=== PATIENT | male | born 1995 | race Caucasian/White ===

== ENCOUNTER 2021-03-12 10:07 | Emergency (ER) | payer BC, SELFPAY ==
[2021-03-12 10:32] VITALS: BP 130/95; PULSE 109; RESP 20; TEMP 37.1; O2SAT 99; BMI 34.9
--- NOTE | 2021-03-12 10:34 | HMH.EDUTC ---
[facility] [place] Impression: Corneal rust ring of right eye Disposition: Home, Self-Care Condition on Discharge: Good Additional Instructions: See Dr. Carolina in his office at noon today for rust ring removal. Dr. Raghu [place] [facility] [address] [place] [address] Referrals: Keon Hernandez MD [Primary Care Provider] - Time of Disposition: 10:42 Medical Decision Making - Awais Inquiry Pt receiving controlled substance: No Awais was queried for this patient: No Vital Signs: 03/12/21 10:32 03/12/21 10:43 03/12/21 10:46 Temperature 98.8 F 98.8 F Temperature Source Oral Oral Pulse Rate Pulse Rate [Left] 109 H 118 H Respiratory Rate 20 16 Blood Pressure 146/94 H Blood Pressure [Right Arm] 130/95 H 146/94 H Blood Pressure Mean 116 Blood Pressure Mean [Right Arm] 106 111 Blood Pressure Source [Right Arm] Automatic Cuff Automatic Cuff Blood Pressure Position [Right Arm] Sitting Sitting 02 Sat by Pulse Oximetry 99 99 Oxygen Delivery Method Room Air Room Air 03/12/21 11:28 Temperature 98.8 F Temperature Source Pulse Rate 118 H Pulse Rate [Left] Respiratory Rate 16 Blood Pressure 146/94 H Blood Pressure [Right Arm] Blood Pressure Mean Blood Pressure Mean [Right Arm] Blood Pressure Source [Right Arm] Blood Pressure Position [Right Arm] 02 Sat by Pulse Oximetry Oxygen Delivery Method Room Air Orders (Tests/Meds): ED MEDICATIONS Discontinued Medications Generic Name Dose Route Start Last Admin Trade Name Freq PRN Reason Stop Dose Admin Fluorescein Sodium 1 mg 03/12/21 11:29 03/12/21 11:31 Fluorescein Sodium 1mg Strip OP 03/12/21 11:30 1 mg ONCE ONE Administration Tetracaine HCl 0 ml 03/12/21 11:29 03/12/21 11:30 Tetracaine 0.5% Opth Joyce 15ml OP 03/12/21 11:30 1 ml ONCE ONE Administration Medical Decision Narrative: Patient reports that he was grinding metal last night when some metal shavings flew up and went under his glasses and feels like it went into his right eye and this morning he could see black spot on his eye. Reports eye has been irritated, watering and feeling like there is something still in his eye. Small amount of black particles noted in corner of eye and was wiped away reports eye sensitive to light and feels like metal is still in his eye Discussed with patient and recommended transfer to the ED for further evaluation and removal of FB if still in eye and patient agreed [facility] [place] - General Stated complaint: AC 03/11/21 Steel in eye Time Seen by Provider: 03/12/21 10:34 Mode of Arrival: Ambulatory Source of Information: Patient Limitations: No Limitations Description of Symptoms (Recalled from Triage Doc. by RN): Steel in eye HEENT Symptoms (Recalled from RN notes): Yes Resp Symptoms (Recalled from RN notes): No Skin Symptoms (Recalled from RN notes): No MS Symptoms (Recalled from RN notes): No Functional Status (Recalled from RN notes): wnl - History of Present Illness Provider Complaint: Patient states that he was grinding some metal last night when a spark of metal shaving went under his glasses in into his right eye States that he thought it was ok and laid down but his eye watered all night and was irritatied and this morning he could see a dark spot in his right eye and feels scratchy at times like there is some metal in there States that he has had this before and had to have it removed - Related Data Allergies Allergy/AdvReac Type Severity Reaction Status Date / Time No Known Allergies Allergy Verified 03/12/21 10:35 - Worker's Comp Is this a Worker's Comp case?: No [facility] History - Hepatitis A Screen Drug use history?: No High risk sexual behaviors?: No History of sexually transmitted infection?: No Currently employed?: No Childcare worker?: No Do you have indoor plumbing?: Yes Do you have electricity?: Yes Attestation statement:: This patient has been
[2021-03-12 10:43] VITALS: BP 146/94
--- NOTE | 2021-03-12 10:45 | HMH.EDGENADL ---
ED Disposition Clinical Impression: Corneal rust ring of right eye Disposition: Home, Self-Care Condition on Discharge: Good Additional Instructions: See Dr. Carolina in his office at noon today for rust ring removal. Dr. Raghu Carolina [facility] [address] [place] [address] Referrals: Keon Hernandez MD [Primary Care Provider] - - Critical Care Critical Care Time: No Attestation: On 03/12/21, the high probability of a clinically significant, sudden or life threatening deterioration of the following system(s) required my full and direct attention, intervention and personal management. The time I documented below is in addition to time spent performing reported procedures but includes the following listed in this critical care notation. Medical Decision Making - Awais Inquiry Pt receiving controlled substance: No Vital Signs: 03/12/21 10:32 03/12/21 10:46 Temperature 98.8 F 98.8 F Temperature Source Oral Oral Pulse Rate [Left] 109 H 118 H Respiratory Rate 20 16 Blood Pressure [Right Arm] 130/95 H 146/94 H Blood Pressure Mean [Right Arm] 106 111 Blood Pressure Source [Right Arm] Automatic Cuff Automatic Cuff Blood Pressure Position [Right Arm] Sitting Sitting 02 Sat by Pulse Oximetry 99 99 Oxygen Delivery Method Room Air Room Air - Physician Consults Physician Consulted: Ge Time: 11:07 Reason -: Opthalmology Eval/Care Comment/Response: He will see the patient in his office today at noon General Adult HPI - General Stated complaint: AC 03/11/21 Steel in eye Time Seen by Provider: 03/12/21 10:45 Mode of Arrival: Ambulatory Source of Information: Patient Limitations: No Limitations Description of Symptoms (Recalled from ER Triage Doc. by RN): Steel in eye - History of Present Illness HPI narrative: Sent from the urgent treatment center for possible foreign body right thigh. Yesterday the patient was grinding metal wearing safety glasses when a piece of metal went up under his safety glasses and got in his right eye. Eye irritation and watering since then. In the urgent treatment center a couple of small black foreign bodies removed from what sounds to be his medial canthus area. However, still complained of irritation, therefore sent for further evaluation. After arrival in the emergency department, he says his irritation and watering is markedly improved. He does not wear glasses or contact lenses. - Related Data Allergies Allergy/AdvReac Type Severity Reaction Status Date / Time No Known Allergies Allergy Verified 03/12/21 10:35 H History - Hepatitis A Screen Drug use history?: No High risk sexual behaviors?: No History of sexually transmitted infection?: No Currently employed?: No Childcare worker?: No Do you have indoor plumbing?: Yes Do you have electricity?: Yes Attestation statement:: This patient has been screened for Hepatitis A risk factors. I have reviewed the patient's past medical history: Yes - Social History Smoking Status: Never smoker Alcohol Intake: never Alcohol Intake Frequency:: holidays/special occasions only Substance Use Type: denies use Occupational Status: other Family Hx:: Non-contributory ROS Obtained: Yes Systems reviewed as appropriate & no additional complaints - Eyes Eyes: Reports irritation, Denies loss of vision Physical Exam - General General appearance: alert, in no apparent distress - Head Head exam: atraumatic, normocephalic - Eye Eye exam: Present: PERRL, EOMI - Expanded Eye Exam Eyelids: bilateral: normal inspection Pupils: Bilateral: regular, round Sclera/Conjunctival: bilateral: normal inspection Anterior chamber: right: normal inspection Both Eyes Image: 1 - Small rust spot Comment: Fluorescein staining performed with magnification. No uptake or abrasions seen. - Respiratory Respiratory exam: Abs
[2021-03-12 10:46] VITALS: BP 146/94; PULSE 118; RESP 16; TEMP 37.1; O2SAT 99; BMI 34.9
--- NOTE | 2021-03-12 10:47 | PC.NURSE ---
visual acutity R eye 20/15 L eye 20/15
--- NOTE | 2021-03-12 11:02 | PC.NURSE ---
DEN GALE spoke with Dr. Carolina at this time
[2021-03-12 11:28] VITALS: BP 146/94; PULSE 118; RESP 16; TEMP 37.1; O2SAT 99
== END 2021-03-12 11:28 | disposition home or self-care (01) ==
LOC: UTC 10:38 → ER 10:38
PROVIDERS: Emergency Provider Nurse Practitioner; PCP Internal Medicine Adolescent Medicine
DX: T15.01XA Foreign body in cornea, right eye, initial encounter (principal); W45.8XXA Other foreign body or object entering through skin, initial encounter; Y92.018 Other place in single-family (private) house as the place of occurrence of the external cause
CPT/HCPCS: 99281

== ENCOUNTER 2024-06-12 09:50 | Outpatient (CLI) | payer OTHER, SELFPAY ==
--- NOTE | 2024-06-12 10:04 | US_ITS ---
FINAL REPORT TECHNIQUE: Ultrasound images of the kidneys and bladder were obtained. CLINICAL HISTORY: ELEVATED SERUM CREATINE FINDINGS: The right kidney measures 10.5 cm in length. It is normal in echogenicity. There is no hydronephrosis. Note is made of a small right renal cyst. The left kidney measures 10.9 cm in length. It is normal in echogenicity. There is no hydronephrosis. Spleen is at the upper limits of normal in size measuring 12.7 cm. The urinary bladder is unremarkable. IMPRESSION: No hydronephrosis. Reviewed, Interpreted and Dictated by Rian Alexandre III, MD Transcribed by Tayla Cruz Authenticated and [facility]
== END 2024-06-12 23:59 | disposition home or self-care (01) ==
LOC: RAD 09:51
PROVIDERS: PCP Internal Medicine Adolescent Medicine; Visit Provider Nurse Practitioner Family
DX: R79.89 Other specified abnormal findings of blood chemistry (principal)
CPT/HCPCS: 76770